=== PATIENT | female | born 1985 | race Caucasian/White ===

== ENCOUNTER 2019-10-23 04:14 | Emergency (ER) | payer BC ==
[~2019-10-23] VITALS: Ht 177.8 cm; Wt 68.0 kg
[2019-10-23 05:25] VITALS: BP 119/66
== END 2019-10-23 05:27 | disposition home or self-care (01) ==
LOC: ER 04:14
DX: N93.9 Abnormal uterine and vaginal bleeding, unspecified (principal); Z87.891 Personal history of nicotine dependence

== ENCOUNTER 2019-11-30 12:28 | Emergency (ER) | payer BC ==
[~2019-11-30] VITALS: Ht 177.8 cm; Wt 68.0 kg
[2019-11-30 12:54] LABS: ABSOLUTE NEUTROPHILS 9.6 thou/uL (1.4-8.2); BASOPHILS 0.4 % (0.0-2.0); EOSINOPHILS 0.2 % (0.0-3.0); HEMATOCRIT 44.3 % (37.0-47.0); LYMPHOCYTES 12.8 % (24.0-44.0); MCH 32.8 pg (26.0-34.0); MCHC 33.9 g/dL (28.0-37.0); MCV 96.9 fL (80.0-100.0); MONOCYTES 5.6 % (1.0-8.0); PLATELET COUNT 264 thou/uL (150-400); RBC 4.58 mil/uL (4.20-5.00); RDW 11.7 % (10.5-14.5); WBC 11.9 thou/uL (4.0-11.0)
[2019-11-30 13:02] LABS: CALCIUM 9.1 mg/dL (8.5-10.1); CREATININE 0.8 mg/dL (0.6-1.0); POTASSIUM 3.5 mmol/L (3.5-5.1)
[2019-11-30 13:07] LABS: ALBUMIN 4.1 g/dL (3.4-5.0); TOTAL BILIRUBIN 0.8 mg/dL (<0.1-1.0); TOTAL PROTEIN 7.7 g/dL (6.4-8.2)
[2019-11-30 14:22] VITALS: BP 113/51
== END 2019-11-30 14:30 | disposition home or self-care (01) ==
LOC: ER 12:28
PROVIDERS: Emergency Medicine
DX: O21.0 Mild hyperemesis gravidarum (principal); Z3A.00 Weeks of gestation of pregnancy not specified; Z87.891 Personal history of nicotine dependence